=== PATIENT | female | born 1975 | race Caucasian/White ===

== ENCOUNTER → 2018-02-03 | Outpatient (CLI) | payer OTHER ==
[2016-02-05 01:00] VITALS: BP 101/53
[~2018-02-03] MED LIST: DOCU-109 PO; ONDA4TAB7 PO; POLY17PO29 PO; SENN-79 PO
--- NOTE | 2018-02-03 17:13 | KCIC ---
MR of the right shoulder Indication: Right shoulder pain, chronic. Technique: Standard multiplanar sequences are obtained. Findings: Artifact: No significant image degradation. Acromioclavicular joint: Mildly degenerative. Rotator cuff: * Supraspinatus-infraspinatus tendon: Mild thickening and increased signal compatible with tendinosis. No measurable tear. * Subscapularis tendon: Tendinosis with very mild partial tearing. No high-grade tear. * Muscle bulk: Within normal limits * Subacromial subdeltoid bursa: Trace effusion. Fluid: No significant glenohumeral effusion. Glenohumeral cartilage: No acute defect or advanced DJD. Labrum: Mild signal within the posterosuperior labrum compatible with a small tear. Biceps tendon: Intact Bones: No lesion or acute fracture. Soft tissue: No acute findings. Impression: 1. Rotator cuff tendinosis. Very mild subscapularis tendon tearing, but no deep or full-thickness rotator cuff tear. 2. Mild signal within the posterosuperior labrum, compatible with a tear. Electronically signed by: Patrick Kurtz MD (02/03/2018 5:10 PM) [id number]
== END | disposition home or self-care (01) ==
LOC: KCIC MRI 16:09
PROVIDERS: ATTEND Nurse Practitioner Adult Health
DX: M25.511 Pain in right shoulder (principal); F41.9 Anxiety disorder, unspecified; Z82.49 Family history of ischemic heart disease and other diseases of the circulatory system; Z83.3 Family history of diabetes mellitus; Z88.2 Allergy status to sulfonamides
CPT/HCPCS: 73221